=== PATIENT | male | born 1970 | race Caucasian/White ===

== ENCOUNTER 2018-08-09 14:27 | Outpatient (CLI) | payer OTHER | END 2018-08-09 14:28 | disposition home or self-care (01) | LOC: LAB 14:27 | PROVIDERS: ATTEND Obstetrics & Gynecology | DX: Z11.1 Encounter for screening for respiratory tuberculosis (principal) | CPT/HCPCS: 36415; 81599; 86480 ==

== ENCOUNTER 2021-05-27 08:39 | Emergency (ER) | payer OTHER, BC ==
--- NOTE | 2021-05-27 09:29 | ED Physician Documentation ---
PD HPI HEAD INJURY - Stated complaint Stated Complaint: HEAD LAC - Chief complaint Chief Complaint: Laceration - History obtained from History obtained from: Patient - History of Present Illness Mechanism of head injury: Blow (struck top of head on hard edge of surface, with laceration.) Where head injury occurred: Work Timing - onset: Today Associated symptoms: No: LOC, AMS, Amnesia Symptoms worsen with: Palpation Contributing factors: No: Anticoagulated, Intoxicated Similar symptoms before: Has not had sx before Review of Systems Constitutional: denies: Fever, Chills Nose: denies: Rhinorrhea / runny nose, Congestion Throat: denies: Sore throat Respiratory: denies: Cough Skin: reports: Laceration (s) (frontal scalp) Neurologic: denies: Near syncope, Confused, Altered mental status, Headache PD PAST MEDICAL HISTORY - Past Medical History Past Medical History: Yes Cardiovascular: None Respiratory: None Neuro: None Endocrine/Autoimmune: None GI: None : None HEENT: None Psych: None Musculoskeletal: Other Derm: Other drug resistant infections - Past Surgical History Past Surgical History: Yes General: Other - Present Medications Home Medications: Ambulatory Orders Medication Instructions Recorded Confirmed No Known Home Medications 08/10/14 05/27/21 - Allergies Allergies/Adverse Reactions: Allergies Allergy/AdvReac Type Severity Reaction Status Date / Time No Known Drug Allergies Allergy Verified 05/27/21 08:46 - Social History Does the pt smoke?: No Smoking Status: Never smoker Does the pt drink ETOH?: Yes Does the pt have substance abuse?: No - Immunizations Immunizations are current?: Yes - POLST Patient has POLST: No PD ED PE NORMAL - Vitals Vital signs reviewed: Yes - General General: Alert and oriented X 3, No acute distress, Well developed/nourished - HEENT HEENT: PERRL, EOMI, Other (frontal scalp with 2 cm laceration to fatty tissue, with mild bleeding still. No FB. ) - Neck Neck: Supple, no meningeal sign, No bony TTP - Derm Derm: Normal color, Warm and dry - Neuro Neuro: Alert and oriented X 3, No motor deficit, Normal speech Eye Opening: Spontaneous Motor: Obeys Commands Verbal: Oriented GCS Score: 15 Results - Vitals Vitals: Vital Signs - 24 hr 05/27/21 05/27/21 08:47 09:52 Temperature 36 C L 36.2 C L Heart Rate 88 88 Respiratory 16 16 Rate Blood Pressure 146/101 H 139/102 H O2 Saturation 100 96 Oxygen O2 Source Room air Procedures - Laceration (location) frontal scalp Length in cm: 2 Wound type: Linear, Into subcut fat, Clean Anesthesia: Lidocaine 1% with epi Wound preparation: Wound explored, To the base. 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 So opted for chip. ), d/w patient Departure - Departure Disposition: Home, Self Care Clinical Impression: Scalp laceration Qualifiers: Encounter type: initial encounter Qualified Code(s): S01.01XA - Laceration without foreign body of scalp, initial encounter Condition: Stable Record reviewed to determine appropriate education?: Yes Instructions: ED Laceration Scalp Stitch Or Stap Follow-Up: Ananth Pineda MD [Primary Care Provider] - Comments: It is okay to wash and shower. Clean off the wound twice a day with soap and water, or peroxide and water. Apply some antibiotic ointment to it to keep it moist. Also to watch for signs of infection such as purulence, redness or increasing pain. Return to your primary care or the ER at the specified time for suture removal. Staple removal 7 to 8 days. Tylenol or ibuprofen if needed for pains. Okay to resume/ continue normal work. Discharge Date/Time: 05/27/21 10:00
[2021-05-27 09:53] VITALS: BP 139/102
== END 2021-05-27 10:00 | disposition home or self-care (01) ==
LOC: EDUNIT# → ED 08:39
DX: S01.01XA Laceration without foreign body of scalp, initial encounter (principal); W22.8XXA Striking against or struck by other objects, initial encounter; Y93.H9 Activity, other involving exterior property and land maintenance, building and construction; Y99.0 Civilian activity done for income or pay
CPT/HCPCS: 12001; 99282; 99283

== ENCOUNTER 2022-12-13 22:56 | Outpatient (CLI) | payer BC | END 2022-12-13 22:57 | disposition short-term general hospital (02) | LOC: EMS 22:56 | DX: I47.1 Supraventricular tachycardia (principal) | CPT/HCPCS: A0425; A0427 ==

== ENCOUNTER 2023-11-24 09:51 | Emergency (ER) | payer BC ==
[2023-11-24 10:03] VITALS: BP 149/100; O2SAT 99
--- NOTE | 2023-11-24 10:22 | ED Physician Documentation ---
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 Lac to elbow and pain to right shoulder. No ohter injury. 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 No: Head, Neck, Chest, Abdomen, Back Associated symptoms: No: LOC, AMS, Weakness, Paresthesias Review of Systems Neurologic: denies: Focal weakness, Numbness, Headache, Head injury PD PAST MEDICAL HISTORY - Past Medical History Past Medical History: Yes Cardiovascular: None Respiratory: None Neuro: None Endocrine/Autoimmune: None GI: None : None HEENT: None Psych: None Musculoskeletal: Other Derm: Other drug resistant infections - Past Surgical History Past Surgical History: Yes General: Other - Present Medications Home Medications: Ambulatory Orders Medication Instructions Recorded Confirmed Diltiazem HCl [Diltiazem 12Hr ER] 120 mg PO DAILY PM 11/24/23 11/24/23 - Allergies Allergies/Adverse Reactions: Allergies Allergy/AdvReac Type Severity Reaction Status Date / Time No Known Drug Allergies Allergy Verified 11/24/23 09:59 - Social History Does the pt smoke?: No Smoking Status: Never smoker Does the pt drink ETOH?: Yes Does the pt have substance abuse?: No - Immunizations Immunizations are current?: Yes - POLST Patient has POLST: No PD ED PE NORMAL - Vitals Vital signs reviewed: Yes - General General: Alert and oriented X 3, No acute distress, Well developed/nourished - Neck Neck: Supple, no meningeal sign, No bony TTP, No adenopathy - Back Back: No spinal TTP - Derm Derm: Normal color, Warm and dry - Extremities Extremities: Other (right elbow with 1.2 cm lac posteriorly without FB but does have ongoing mild oozing bleeding and it opens with flexion. Needs suturing. Shoulder with some tenderness osteriorly with good ROM. Pain more with abduction. Rotator cuff movements minimally painful and are strong. ) - Neuro Neuro: Alert and oriented X 3, No motor deficit, No sensory deficit, Normal speech Results - Vitals Vitals: Vital Signs - 24 hr 11/24/23 09:54 Temperature 36.1 C L Heart Rate 83 Respiratory 14 Rate Blood Pressure 149/100 H O2 Saturation 99 Oxygen O2 Source Room air - Rads (name of study) right shoulder Relevant Findings:: Prelim report reviewed, EMP independent interpretation of test (is tender at lateral shoulder so got xray to eval tubercle and for impaction type injury. Appears normal. ) Procedures - Laceration (location) right elboe posteriorly Length in cm: 1.2 Wound type: Irregular, Into subcut fat (I do not see extension to joint capsule nor elbow bursa.), Clean Neurovascular status: Sensory intact, Motor intact Tendon involvement: Tendon intact Anesthesia: Lidocaine 1% with epi Wound preparation: Wound explored, To the base, Other (cleansed with tap water) Skin layer closure: Nylon, Interrupted, Size #-0 - enter number (4), Sutures - enter # (4) Other: Patient tolerated well (he had some feeling of sharpness in one end of it.), No complications, Neurovascular intact, Dressing applied, Tetanus UTD PD Medical Decision Making - ED course Complexity details: reviewed results (shoulder xray without fractures nor dislocations. ), considered differential (laceration at elbow with still some bleeding and opens with flexion so needing sutures. No signs of it to joint/bursa. Right shoulder with some pain on ROM posteirorly but good rotator cuff movements and hurts more with abduction/bigger muscles. ), d/w patient Reviewed Lab Results: Shoulder seems strain of muscles more than rotator cuff injury. Guarded use for couple days. F/U with Ortho in about a week to ensure healing properly as work needs good lifting strength/use. Departure - Departure Disposition: 01 Home, Self Care Clinical Impression: Fall due to slipping on ice or snow, Elbow laceration, Right shoulder strain Condition: Stable Record reviewed to determine appropriate education?: Yes Instructions: ED Laceration All, ED Sprain Shoulder Follow-Up: [facility] [Provider Group] Comments: It is okay to wash and shower. Clean off the wound twice a day with soap and water, or peroxide and water. Apply some antibiotic ointment to it to keep it moist. Also to watch for signs of infection such as purulence, redness or increasing pain. Return to your primary care or the ER at the specified time for suture removal. Suture removal 10 to 12 days. Your x-ray of your shoulder appears normal. Obviously still have some soreness in there. Be gentle with extra heavy lifting and rotational movements. Consider some anti-inflammatory such as ibuprofen or naproxen 2-3 times daily for the next several days to week. Follow-up with your primary care or Ortho if not fully improved over the next 1 to 2 weeks. Forms: PCP List Discharge Date/Time: 11/24/23 11:41
--- NOTE | 2023-11-24 11:12 | XRAY Report ---
PROCEDURE: Shoulder 2+V RT INDICATIONS: fall onto elbow/ has shoulder pain ROM TECHNIQUE: 3 views of the shoulder were acquired. COMPARISON: None. FINDINGS: Bones: No fractures or dislocations. Normal glenohumeral alignment. Acromioclavicular and coracocla vicular intervals are maintained. No suspicious bony lesions. Visualized ribs appear intact. Soft tissues: No suspicious soft tissue calcifications. The visualized lungs are within normal limi ts. IMPRESSION: No acute bony abnormality. Reviewed by: Tesha Mccain MD on 11/24/2023 11:11 AM PST Approved by: Tesha Mccain MD on 11/24/2023 11:11 AM PST Station ID: [id number]
== END 2023-11-24 11:41 | disposition home or self-care (01) ==
LOC: ED 09:51
DX: S51.011A Laceration without foreign body of right elbow, initial encounter (principal); S46.911A Strain of unspecified muscle, fascia and tendon at shoulder and upper arm level, right arm, initial encounter; W00.0XXA Fall on same level due to ice and snow, initial encounter
CPT/HCPCS: 12001; 99283

== ENCOUNTER 2024-01-02 08:00 | Outpatient (CLI) | payer OTHER, BC ==
--- NOTE | 2024-01-02 20:45 | XRAY Report ---
PROCEDURE: Elbow 3 View RT INDICATIONS: RIGHT ELBOW PAIN TECHNIQUE: 3 views of the elbow were acquired. COMPARISON: None FINDINGS: Bones: No fractures or dislocations. No suspicious bony lesions. Soft tissues: No elbow joint effusion. No suspicious soft tissue calcifications. IMPRESSION: Unremarkable elbow radiographs Reviewed by: Naun Frances MD on 01/02/2024 7:44 PM AKST Approved by: Naun Frances MD on 01/02/2024 7:44 PM AKST Station ID: [id number]
--- NOTE | 2024-01-02 20:46 | XRAY Report ---
PROCEDURE: Shoulder 3 View RT INDICATIONS: RIGHT SHOULDER PAIN TECHNIQUE: 3 views of the shoulder were acquired. COMPARISON: None FINDINGS: Bones: No fractures or dislocations. No suspicious bony lesions. Visualized ribs appear intact. Soft tissues: No suspicious soft tissue calcifications. IMPRESSION: Unremarkable shoulder radiographs Reviewed by: Naun Frances MD on 01/02/2024 7:44 PM [place] Approved by: Naun Frances MD on 01/02/2024 7:44 PM [place] Station ID: [id number]
== END 2024-01-02 23:59 | disposition home or self-care (01) ==
LOC: DI.WOS 08:00
PROVIDERS: ATTEND Physician Assistant Surgical
DX: M25.511 Pain in right shoulder (principal); S51.011D Laceration without foreign body of right elbow, subsequent encounter

== ENCOUNTER 2024-04-11 09:22 | Outpatient (CLI) | payer OTHER, BC ==
--- NOTE | 2024-04-11 12:13 | MRI Report ---
PROCEDURE: Shoulder RT WO INDICATIONS: STRAIN OF R SHOULDER TECHNIQUE: Noncontrast oblique coronal T2 fast spin echo with fat saturation, oblique sagittal T1 spin echo and T2 fast spin echo with fat saturation, axial T1 spin echo and T2 fast spin echo with fat saturation t hrough the shoulder. COMPARISON: Plain films dated 01/02/2024 FINDINGS: Image quality: Excellent. Rotator cuff: The there is mild T2 signal elevation within the posterior supraspinatus as well as th e anterior and mid infraspinatus tendons at the humeral insertion sites extending the muscular tendin ous junctions, indicating tendinopathy. Superimposed low-grade intrasubstance tearing of the anterior and mid infraspinatus tendon at the humeral insertion site extending the muscular tendinous junction . Subscapularis and teres minor tendons are intact. No rotator cuff atrophy. Bones and bursae: No bone marrow contusions or fractures. Mild glenohumeral and acromioclavicular [place] int degeneration. The acromion demonstrates conventional anatomy, without an os acromiale. No patho logic subacromial/subdeltoid bursal fluid is present. Capsule and soft tissues: In the absence of intra-articular contrast, the labrum and glenohumeral li gaments appear intact. The long head of the biceps tendon demonstrates normal location and morpholog y. The rotator interval appears normal, without fibrosis. The coracohumeral ligament is normal in t hickness. IMPRESSION: 1. Supraspinatus and infraspinatus tendinopathy with superimposed low-grade tears of the infraspinatu s. No full-thickness rotator cuff tear. 2. Acromioclavicular and glenohumeral joint osteoarthritis. Reviewed by: Brock Carter MD on 04/11/2024 12:12 PM PDT Approved by: Brock Carter MD on 04/11/2024 12:12 PM PDT Station ID: [id number]
== END 2024-04-11 09:23 | disposition home or self-care (01) ==
LOC: DI 09:22
PROVIDERS: ATTEND Physician Assistant Surgical
DX: M75.111 Incomplete rotator cuff tear or rupture of right shoulder, not specified as traumatic (principal); M19.011 Primary osteoarthritis, right shoulder